=== PATIENT | male | born 1975 | race American Indian/Alaskan Native ===

== ENCOUNTER 2023-08-22 13:53 | Outpatient (AMB) | payer BC, SELFPAY ==
--- NOTE | 2023-08-22 13:57 | HO.SPINEOV ---
Intake Visit Reasons: second opinion Intake Note: Mr. 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 The right side is more affected than the left side. The symptoms are interfering with his daily activities. He can not perform simple activities with the children due to the neck pain. He was offered an anterior diskectomy and fusion C6-7 at the [facility], [place], [facility] after failure of conservative treatments. He comes in for 2nd opinion. Physical Exam: He moves his neck in all directions. The subjective paresthesias in a C7 dermatome. No motor deficits. Radiological Studies: MRI done at [facility], [place] is not available for review. He did bring the MRI report which describes a C6-7 degenerative disc disease with moderate narrowing of the canal and severe bilateral foraminal stenosis. Impression/Plan: This patient is suffering from chronic neck pain and bilateral C7 radiculopathy with the MRI showing C6-7 degenerative disc disease and severe bilateral C7 foraminal narrowing. I do think he is a good candidate for a decompression of the cervical spine, anterior approach. The options are a fusion versus an artificial disc. This surgeon at [facility], [place] discuss those 2 options with the patient as well and favored a fusion due to the amount of degenerative changes seen on the MRI. I agree with this opinion. The only difference I have to offer is that the surgery will be done in day surgery and no collar will be required. I spent 30 minutes in his consult. Thank you for allowing me to participate in your patients care. total time spent was 30 minutes in counseling ,coordination of plan, personal review of imaging report, surgical decision making and subsequent plan Irvin Akers MD, PhD Sp[facility] Trained Neurosurgeon Director, [facility] Coding Level of Care Code New Pt Level 3 (05592) Diagnoses Cervical radiculopathy at C7 M54.12
== END 2023-08-22 14:41 | disposition home or self-care (01) ==
PROVIDERS: PCP Family Medicine; Visit Provider Neurological Surgery
DX: M54.12 Radiculopathy, cervical region (principal)
CPT/HCPCS: 99203

== ENCOUNTER → 2023-08-22 13:53 | Outpatient (BNVA) | payer BC, SELFPAY | PROVIDERS: PCP Family Medicine; Visit Provider Neurological Surgery ==